=== PATIENT | female | born 1935 | race Caucasian/White ===

== ENCOUNTER 2021-07-14 09:39 | Emergency (ER) | payer MEDICARE ==
[2021-07-14 09:49] VITALS: BP 179/82
[2021-07-14 10:23] LABS: HEMATOCRIT 31.8 % (37.0-47.0); HEMOGLOBIN 10.7 g/dl (12.0-16.0); IMMATURE GRANULOCYTES 0.4 % (0.0-5.0); MEAN CELL VOLUME 87.4 fL CALC (80.0-100.0); MEAN CORPUSCULAR HGB 29.4 pG CALC (26.0-32.0); MEAN CORPUSCULAR HGB CONC 33.6 g/dL CAL (32.0-36.0); NEUT# 3.05 thou/uL (2.00-7.15); RED BLOOD COUNT 3.64 mill/uL (4.20-5.60); RED CELL DISTRI WIDTH 13.4 % (11.5-15.5)
[2021-07-14 10:36] LABS: ALBUMIN 3.6 g/dL (3.2-5.0); BILIRUBIN, TOTAL 0.6 mg/dL (0.0-1.4); CREATININE 1.1 mg/dL (0.5-1.0); TOTAL PROTEIN 6.1 g/dL (6.3-8.2)
== END 2021-07-14 12:30 | disposition home or self-care (01) ==
LOC: ED 09:39
DX: U07.1 COVID-19 (principal); E86.0 Dehydration; I10 Essential (primary) hypertension; E11.9 Type 2 diabetes mellitus without complications; I25.10 Atherosclerotic heart disease of native coronary artery without angina pectoris; Z95.5 Presence of coronary angioplasty implant and graft

== ENCOUNTER 2022-05-15 01:46 | Observation (INO) | payer MEDICARE ==
[~2022-05-15] VITALS: Ht 165.1 cm; Wt 55.0 kg
[2022-05-15] VITALS (10 sets, daily range): BP systolic 119–168; BP diastolic 56–86
[2022-05-15 02:22] LABS: HEMATOCRIT 39.8 % (37.0-47.0); HEMOGLOBIN 12.2 g/dl (12.0-16.0); IMMATURE GRANULOCYTES 1.3 % (0.0-5.0); MEAN CORPUSCULAR HGB 28.5 pG CALC (26.0-32.0); MEAN CORPUSCULAR HGB CONC 30.7 g/dL CAL (32.0-36.0); NEUT# 8.19 thou/uL (2.00-7.15); RED BLOOD COUNT 4.28 mill/uL (4.20-5.60); RED CELL DISTRI WIDTH 19.3 % (11.5-15.5)
[2022-05-15] MEDS ORDERED: LASIX (02:39)
[2022-05-15] MEDS ORDERED: HYDROCODONE (02:39)
[2022-05-15 02:40] LABS: ALBUMIN 2.7 g/dL (3.2-5.0); BILIRUBIN, TOTAL 0.9 mg/dL (0.0-1.4); CREATININE 1.8 mg/dL (0.5-1.0); POTASSIUM 5.3 mmol/l (3.5-5.1); TOTAL PROTEIN 5.6 g/dL (6.3-8.2)
[2022-05-15 03:14] LABS: URINE BILIRUBIN - DIPSTICK NEGATIVE (NEGATIVE); URINE BLOOD DIPSTICK NEGATIVE (NEGATIVE); URINE COLOR YELLOW; URINE GLUCOSE - DIPSTICK 250 mg/dL (NEGATIVE); URINE KETONE NEGATIVE (NEGATIVE); URINE LEUK ESTERASE TRACE (NEGATIVE); URINE PROTEIN - DIPSTICK NEGATIVE (NEG-TRACE); URINE SPECIFIC GRAVITY 1.015; URINE UROBILINOGEN - DIPSTICK 0.2 E.U./dL (0.2)
[2022-05-15 03:17] LABS: URINE NITRITE - DIPSTICK NEGATIVE (Negative)
[2022-05-15] MEDS ORDERED: METFORMIN500 M2 PO (03:43)
[2022-05-15] MEDS ORDERED: FAMOTIDINE20 M1 PO (03:45)
[2022-05-15] MEDS ORDERED: PROCHLORPERAZINE5 M1 PO (13:41)
[2022-05-15] MEDS ORDERED: ELIQUIS5 MG PO (13:42)
[2022-05-15] MEDS ORDERED: DONEPEZIL HCL10 M1 PO (13:42)
[2022-05-15] MEDS ORDERED: COREG6.25 MG PO (13:42)
[2022-05-15] MEDS ORDERED: AMLODIPINE BESYL5 MG PO (13:42)
[2022-05-15] MEDS ORDERED: LASIX20 MG PO (13:44)
[2022-05-15] MEDS ORDERED: LISINOPRIL20 M1 PO (13:45)
[2022-05-15] MEDS ORDERED: LEVEMIR100 UNIT SC (13:45)
[2022-05-15] MEDS ORDERED: SPIRONOLACT25 MG PO (13:46)
== END 2022-05-15 19:30 | disposition hospice, inpatient (51) ==
LOC: ED 01:46 → ED-I 02:19 → ED 02:35 → MS2 02:36
PROVIDERS: Family Medicine; ADMIT Internal Medicine; ATTEND Internal Medicine
DX: S70.02XA Contusion of left hip, initial encounter (principal); S51.012A Laceration without foreign body of left elbow, initial encounter; S51.011A Laceration without foreign body of right elbow, initial encounter; C22.8 Malignant neoplasm of liver, primary, unspecified as to type; C79.9 Secondary malignant neoplasm of unspecified site; F03.90 Unspecified dementia, unspecified severity, without behavioral disturbance, psychotic disturbance, mood disturbance, and anxiety; I10 Essential (primary) hypertension; E11.9 Type 2 diabetes mellitus without complications; I25.10 Atherosclerotic heart disease of native coronary artery without angina pectoris; W18.30XA Fall on same level, unspecified, initial encounter; Y92.009 Unspecified place in unspecified non-institutional (private) residence as the place of occurrence of the external cause; Z51.5 Encounter for palliative care; Z96.642 Presence of left artificial hip joint; Z20.822 Contact with and (suspected) exposure to COVID-19
CPT/HCPCS: J2060